=== PATIENT | male | born 1980 | race Two or more races ===

== ENCOUNTER → 2024-06-11 | Outpatient (CLI) | payer BC, SELFPAY ==
--- NOTE | 2024-06-11 15:06 | XR_ITS ---
Examination: Lumbar spine, 5 views Technique: Lumbar spine AP, lateral, coned lateral lower lumbar spine, bilateral obliques 5 views Exam date and time: June 11, 2024 1513 hours INDICATIONS: Low back pain radiating down both legs 3 months FINDINGS: Lumbar dextroscoliosis 10 degrees Mild to moderate diffuse facet arthropathy Grade 1 anterolisthesis L4 on L5 Diffuse lumbar disc narrowing, advanced L5-S1 IMPRESSION: Diffuse lumbar degenerative disc disease, advanced L5-S1
== END | disposition home or self-care (01) ==
PROVIDERS: PCP Family Medicine; Referring Provider Family Medicine; Visit Provider Family Medicine
DX: M51.369 Other intervertebral disc degeneration, lumbar region without mention of lumbar back pain or lower extremity pain (principal); M51.379 Other intervertebral disc degeneration, lumbosacral region without mention of lumbar back pain or lower extremity pain
CPT/HCPCS: 72110

== ENCOUNTER → 2024-07-14 | Outpatient (CLI) | payer BC, SELFPAY ==
[2024-07-14 10:25] LABS: Glucose Estimated Average 97 mg/dL (80-131)
[2024-07-14 10:47] LABS: Alanine Aminotransferase 34 U/L (10-49); Albumin, Serum 4.9 gm/dL (3.5-5.0); Albumin/Globulin Ratio 1.8 (1.2-2.2); Alkaline Phosphatase 94 U/L (46-116); Anion Gap 8 (7-16); Aspartate Amino Transferase 29 U/L (0-34); BUN/Creatinine Ratio 16 Ratio (12-20); Bilirubin,Total 1.2 mg/dL (0.3-1.2); Blood Urea Nitrogen 14 mg/dL (9-23); Calcium 9.5 mg/dL (8.3-10.6); Calcium (Corrected) 9.5 mg/dL (8.5-10.1); Carbon Dioxide 27.6 mMol/L (20.0-31.0); Chloride 104 mMol/L (98-107); Cholesterol 160 mg/dL (132-200); Creatinine (Component) 0.9 mg/dL (0.6-1.3); Globulin 2.8 gm/dL (2.3-3.5); Glucose 79 mg/dL (74-106); HDL Cholesterol 54 mg/dL (40-60); LDL Cholesterol,Calculated 73 mg/dL (0-130); Osmolality,Calculated 278 (275-295); Potassium 4.3 mMol/L (3.4-5.1); Sodium 140 mMol/L (136-145); Total Protein 7.7 gm/dL (5.7-8.2); Triglycerides 167 mg/dL (30-150); eGFR > 60 See Note
== END | disposition home or self-care (01) ==
LOC: COPL 09:04
PROVIDERS: PCP Family Medicine; Referring Provider Family Medicine; Visit Provider Family Medicine
DX: E11.65 Type 2 diabetes mellitus with hyperglycemia (principal); E78.1 Pure hyperglyceridemia
CPT/HCPCS: 36415; 80053; 80061; 83036

== ENCOUNTER → 2024-07-16 | Outpatient (CLI) | payer BC, SELFPAY ==
--- NOTE | 2024-07-16 16:15 | XR_ITS ---
Examination: MRI lumbar spine without contrast Date and time of exam: July 16, 2024 1743 hours INDICATION: Low back pain radiating down both legs beginning 6 months ago Technique: Multiple MRI axial and sagittal sections lumbar spine. Sagittal T2-weighted images, TR 3500, TE 118 T1 weighted transverse sections, TR 688 T8.5, T2-weighted sagittal sections T1 weighted sagittal sections TR 621, TE 30 T2 axial sections, TR 4, 190, TE 84. Findings: Adequate alignment lumbar vertebral bodies on the lateral view Moderate to advanced disc narrowing L5-S1 with disc desiccation No spondylolisthesis L5-S1 2 mm central and 4 mm right foraminal disc bulge producing mild right L5 ganglionic compression L4-L5 3 mm central and 5 mm bilateral foraminal disc bulges producing mild left and moderate right L4 ganglionic compression L3-L4 no disc protrusion L2-L3 no disc protrusion L1-L2 no disc protrusion IMPRESSION: L5-S1 2 mm central 4 mm right foraminal disc bulge, mild right L5 ganglionic impression L4-L5 3 mm central 5 mm bilateral foraminal disc bulges, mild left moderate right L4 ganglionic compression
== END | disposition home or self-care (01) ==
LOC: SMRI 15:57
PROVIDERS: PCP Family Medicine; Referring Provider Family Medicine; Visit Provider Family Medicine
DX: M51.369 Other intervertebral disc degeneration, lumbar region without mention of lumbar back pain or lower extremity pain (principal); G95.20 Unspecified cord compression
CPT/HCPCS: 72148

== ENCOUNTER 2025-01-04 10:27 | Emergency (ER) | payer BC, SELFPAY ==
[2025-01-04 10:28] VITALS: BMI 55.2
[2025-01-04 10:40] VITALS: BP 197/110; PULSE 87; RESP 19; TEMP 36.8; O2SAT 97
--- NOTE | 2025-01-04 10:50 | XR_ITS ---
Examination: Wrist, left 3 views Technique: Wrist AP, oblique, lateral 3 views Date and time of exam: January 04, 2025 1054 hours INDICATIONS: Left wrist pain beginning 2 days ago. FINDINGS: No fracture or dislocation. No foreign body. No erosive or other significant arthritic change. IMPRESSION: No erosive or other significant arthritic change
--- NOTE | 2025-01-04 10:50 | XR_ITS ---
Examination: Hand, left 3 views Technique: Hand AP, oblique, lateral 3 views Date and time of exam: January 04, 2025 1054 hours INDICATIONS: Left hand pain beginning 2 days ago. FINDINGS: Adequate bone density small chip fracture off the volar base middle phalanx third digit age indeterminate No erosive arthritis No avascular necrosis IMPRESSION: 2 mm chip fracture off the volar base middle phalanx third digit, age indeterminate
--- NOTE | 2025-01-04 10:50 | PD.EDHAND ---
Upper Extremity Injury RME/HPI General Chief Complaint: Hand/Wrist Problems Stated Complaint: L) WRIST/HAND PAIN SINCE YESTERDAY Time Seen by Provider: 01/04/25 10:44 Source: patient Arrival date/time: 01/04/25 10:27 44-year-old male with a history of hypertension and left carpal tunnel surgery presents to the emergency room with a chief complaint of pain and tenderness to his left wrist that began yesterday afternoon. Mode of arrival: ambulatory Limitations: no limitations Related Data Home Medications ?Medication ?Instructions ?Recorded ?Confirmed Losartan Potassium * (COZAAR *) 100 mg PO QDAY #0 tabs 05/29/14 Allergies Allergy/AdvReac Type Severity Reaction Status Date / Time amoxicillin Allergy Severe Abdominal Verified 01/04/25 10:30 Pain Review of Systems Review of Systems Systems Reviewed: All systems reviewed, normal except as documented Constitutional Constitutional: Reports system reviewed and no additional complaints, except as documented, Denies fatigue, Denies fever(s), Denies headache(s) and Denies weakness Eyes Eyes: Reports system reviewed and no additional complaints, except as documented, Denies blurry vision and Denies change in vision ENT Ears, Nose, Mouth, and Throat: Reports system reviewed and no additional complaints, except as documented, Denies otalgia, Denies headache(s), Denies nasal congestion, Denies throat swelling and Denies vertigo Cardiovascular Cardiovascular: Reports system reviewed and no additional complaints, except as documented, Denies chest pain, Denies dyspnea and Denies dyspnea on exertion Respiratory Respiratory: Reports system reviewed and no additional complaints, except as documented, Denies chest congestion, Denies cough, Denies dyspnea, Denies dyspnea on exertion and Denies wheezing Gastrointestinal Gastrointestinal: Reports system reviewed and no additional complaints, except as documented, Denies abdominal pain, Denies cramping, Denies nausea and Denies vomiting Genitourinary Genitourinary: Reports system reviewed and no additional complaints, except as documented, Denies dysuria and Denies hematuria Musculoskeletal Musculoskeletal: Reports system reviewed and no additional complaints, except as documented, Reports arthralgias, Denies back pain, Reports joint swelling and Reports limited range of motion Integumentary/Breasts Skin/Breast: Reports system reviewed and no additional complaints, except as documented and Denies wounds Neurologic Neurologic: Reports system reviewed and no additional complaints, except as documented, Denies confusion, Denies headache(s), Denies lack of coordination, Denies vertigo and Denies weakness Psychiatric Psychiatric: Reports system reviewed and no additional complaints, except as documented, Denies anxiety, Denies confusion, Denies depression, Denies paranoia, Denies suicidal ideation and Denies tactile hallucinations Endocrine Endocrine: Reports system reviewed and no additional complaints, except as documented and Denies fatigue Hematologic/Lymphatic Hematologic/Lymphatic: Reports system reviewed and no additional complaints, except as documented and Denies lymphadenopathy Allergic/Immunologic Allergic/Immunologic: Reports system reviewed and no additional complaints, except as documented, Denies throat swelling, Denies urticaria and Denies wheezing ED Exam General Limitations: Present no limitations General appearance: Present alert and in no apparent distress Head Head exam: Present atraumatic Eye Eye exam: Present normal appearance, PERRL and EOMI ENT ENT exam: Present normal exam, normal oropharynx and mucous membranes moist Neck Neck exam: Present normal inspection, full ROM and trachea midline Chest Chest inspection: Present normal inspection and symmetric chest wall rise Respiratory Respiratory exam: Present normal lung sounds bilaterally Cardiovascular Cardiovascular exam: Present regular rate, normal rhythm and normal heart sounds Abdominal Exam Abdominal exam: Present soft and normal bowel sounds Extremities Exam Extremities exam: Present normal inspection and full ROM Expanded Upper Extremity Exam Shoulder exam: Present normal inspection Arm exam: Present normal inspection Elbow exam: Present normal inspection Forearm/Wrist exam: Present tenderness and pain with axial thumb loading; Absent full ROM Hand exam: Present tenderness; Absent full ROM Neuromotor exam: Abnorm wrist extension, thumb opposition, thumb IP flexion, thumb adduction or fingers 2-5 abduction Vascular exam: Normal capillary refill Back Exam Back exam: Present normal inspection and full ROM Neurological Exam Neurological exam: Present alert, oriented X3 and CN II-XII intact Psychiatric Psychiatric exam: Present normal affect and normal mood Skin Skin exam: Present warm, dry, intact and normal color Course Quality Measures none Orders Category Date Time Status XR hand comp LT min 3V Stat Exams 01/04/25 10:50 Completed XR wrist comp LT min 3V Stat Exams 01/04/25 10:50 Completed Ketorolac Inj [Toradol Inj] Med 01/04/25 10:50 Discontinued 30 mg IM X1 ONE Vital Signs Vital signs: Vital Signs Temperature 98.2 F 01/04/25 10:40 Pulse Rate 87 01/04/25 10:40 Respiratory Rate 19 01/04/25 10:40 Blood Pressure 197/110 H 01/04/25 10:40 Pulse Oximetry (%) 97 01/04/25 10:40 Oxygen Delivery Method Room Air 01/04/25 10:40 Extremity Injury MDM Narrative MDM Narrative:: 44-year-old male with a history of hypertension and left carpal tunnel surgery presents to the emergency room with a chief complaint of pain and tenderness to his left wrist that began yesterday afternoon. Patient is hemodynamically stable and in no apparent distress Physical examination shows pain and tenderness to the patient's left wrist. Patient states he had a history of a carpal tunnel surgery to the same wrist and states this pain feels the same. An x-ray of the wrist was completed and was negative for any acute findings or dislocations. The findings are consistent with tendinitis. The patient was educated to follow-up with his primary care provider and if signs and symptoms continue he will need an MRI For any evidence of worsening signs or symptoms return to the emergency room immediately Patient data External records reviewed:: [facility] previous records Clinical information provided by:: patient Social determinants that could affect healthcare access:: none Patient has the following chronic illnesses:: No chronic illness How is presenting disease/condition affected by chronic disease/condition?: no chronic disease Evaluation data The following diagnostics were reviewed and interpreted by me:: lab results and radiology exam(s) Lab and/or radiology exams considered but not ordered:: Labs and radiology exams considered and ordered Interpretation Summary: Left wrist [id number]: Adequate bone density small chip fracture off the volar base middle phalanx third digit age indeterminate No erosive arthritis No avascular necrosis IMPRESSION: 2 mm chip fracture off the volar base middle phalanx third digit, age indeterminate Medications / Prescriptions Medications or Prescriptions considered but not ordered:: Medication given Medication administrations:: Medication Administration History Discontinued Medications Ketorolac Tromethamine (Ketorolac Inj 60 Mg/2 Ml Vial) 30 mg IM X1 ONE Stop: 01/04/25 10:51 Last Admin: 01/04/25 11:03 Dose: 30 mg Documented By: OA Medication given Consultations Consultation(s) initiated? (list below): No Diagnosis Upper Extremity Injury Differential Diagnosis: sprain and strain of wrist, fracture of wrist and other (Tendinitis of left wrist) Most likely diagnosis given after review of the tests above:: Tendinitis of left wrist Admission Indicated Admission indicated?: not indicated Admission Request Was there a request for admission?: No Disposition Plan Disposition Plan: Discharge Discharge Attestation Discharge Attestation: The patient and all family members were given an opportunity to ask questions and understood the discharge instructions. Discharge instructions specifically effects, indications for sooner follow up or return to the emergency department, and the expected course of current diagnosis. Patient condition: Stable Discharge Plan Plan Patient Disposition: HOME (Self Care) Discharge Disposition comment: Stable Prescriptions/Referrals Prescriptions/Med Rec: No Action Losartan Potassium * (COZAAR *) 100 MG tablet 100 mg PO QDAY Qty: 0 Referrals: Alfonzo Hightower MD [Primary Care Provider] - In 1 week Problem List Clinical Impression: Left wrist tendinitis Patient/Caregiver Discharge Instructions Additional Instructions: Please follow-up with your primary care provider in the next 24 to 48 hours If the signs and symptoms of your wrist continue you will need an MRI to assess for any nerve damage. Your x-rays were completed and were negative for any acute fractures or dislocations For any evidence of worsening signs or symptoms return to the emergency room immediately Print Language: Sammarinese Stand Alone Forms: Rochelle Award Info., Work/School Release, Patient Portal Info Letter SVETLANA/BRANDON Supervising Physician SVETLANA/BRANDON Supervising Physician: Dr. Rosas
[2025-01-04] MEDS: KETOROLAC INJ 60 MG/2 ML VIAL 30 MG IM (11:03)
== END 2025-01-04 11:56 | disposition home or self-care (01) ==
PROVIDERS: Emergency Provider Nurse Practitioner Family; PCP Family Medicine
DX: M77.8 Other enthesopathies, not elsewhere classified (principal); G56.02 Carpal tunnel syndrome, left upper limb; M79.642 Pain in left hand
CPT/HCPCS: 73110; 73130; 96372; 99283; J1885

== ENCOUNTER → 2025-01-04 | Outpatient (CLI) | payer BC, SELFPAY ==
[2025-01-04 17:52] LABS: Uric Acid 8.0 mg/dL (3.7-9.2)
== END | disposition home or self-care (01) ==
PROVIDERS: PCP Family Medicine; Referring Provider Family Medicine; Visit Provider Family Medicine
DX: M23.90 Unspecified internal derangement of unspecified knee (principal)
CPT/HCPCS: 36415; 84550